=== PATIENT | male | born 1970 | race Caucasian/White ===

== ENCOUNTER 2019-05-17 03:14 | Inpatient (IN) | payer OTHER ==
[~2019-05-17] VITALS: Ht 175.3 cm; Wt 95.3 kg
[2019-05-17 03:14] VITALS: BP 102/74
[2019-05-17] MEDS ORDERED: OMEPRAZOLE 20 M20 M1 PO (03:18)
[2019-05-17 04:05] LABS: BASOPHILS 0.6 % (0.0-2.0); EOSINOPHILS 1.8 % (0.0-3.0); HEMATOCRIT 36.7 % (42.0-52.0); HEMOGLOBIN 12.6 gm/dL (14.0-18.0); LYMPHOCYTES 21.8 % (24.0-44.0); MCH 31.1 pg (26.0-34.0); MCHC 34.3 g/dL (28.0-37.0); MCV 90.6 fL (80.0-100.0); MONOCYTES 6.2 % (1.0-8.0); PLATELET COUNT 302 thou/uL (150-400); POLYS 69.6 % (36.0-66.0); RBC 4.05 mil/uL (4.50-6.00); WBC 8.6 thou/uL (4.0-11.0)
[2019-05-17 04:09] LABS: ANION GAP 7 mmol/L (7-16); BUN 33 mg/dL (7-18); CALCIUM 8.8 mg/dL (8.5-10.1); CHLORIDE 105 mmol/L (98-107); CO2 27 mmol/L (21-32); CREATININE 0.9 mg/dL (0.7-1.3); GLUCOSE 157 mg/dL (74-106); POTASSIUM 3.9 mmol/L (3.5-5.1); SODIUM 139 mmol/L (136-145)
[2019-05-17 04:20] LABS: ALBUMIN 3.1 g/dL (3.4-5.0); SGOT 12 U/L (15-37); SGPT 23 U/L (30-65); TOTAL BILIRUBIN 0.3 mg/dL (<0.1-1.0); TOTAL PROTEIN 6.4 g/dL (6.4-8.2); TROPONIN-I <0.06 ng/mL (<0.06)
[2019-05-17 07:38] VITALS: BP 91/64
[2019-05-17 14:18] VITALS: BP 123/67
[2019-05-17 20:03] VITALS: BP 121/74
[2019-05-18 05:22] VITALS: BP 105/68
[2019-05-18 06:05] LABS: HEMATOCRIT 28.9 % (42.0-52.0); MCH 30.9 pg (26.0-34.0); MCHC 33.8 g/dL (28.0-37.0); MCV 91.4 fL (80.0-100.0); RBC 3.16 mil/uL (4.50-6.00); RDW 13.1 % (10.5-14.5); WBC 6.5 thou/uL (4.0-11.0)
[2019-05-18 06:19] LABS: HEMOGLOBIN 9.8 gm/dL (14.0-18.0)
[2019-05-18 07:29] VITALS: BP 123/63
--- NOTE | 2019-05-18 07:50 | EKG ---
[address] [place] [address] ELECTROCARDIOGRAM REPORT Name: AL VERMA Room #: 204-P ADM IN M.R.#: [id number] Admission: 05/17/19 Attend Phys: Dagmar Fernandes Discharge: Date of : 68 Report #: [id number] THIS REPORT FOR: //name// [facility] ED Test Date: 2019-05-17 Test Time: 03:14:51 Pat Name: AL VERMA Department: Room: 204 Gender: M Business Intelligence Architect: : 1970 Requested By: John Tillman Order Number: [id number] MD: Casey Garay Measurements Intervals [place] Rate: 85 P: 51 [place]: 148 QRS: 55 QRSD: 72 T: 45 QT: 353 QTc: 420 Interpretive Statements Sinus rhythm Normal tracing No previous ECG available for comparison Electronically Signed On 05-18-2019 7:50:44 CDT by Casey Garay [email or web address] <ELECTRONICALLY SIGNED> By: Casey Garay MD, [facility] 05/18/19 0750 0314 0314 Casey Garay MD, FACC /EPI
[2019-05-18] MEDS ORDERED: CARAFATE 1 GM TA1 G1 PO (09:41)
[2019-05-18] MEDS ORDERED: PROTONIX40 M2 PO (09:41)
[2019-05-18 11:29] VITALS: BP 116/71
--- NOTE | 2019-05-18 12:41 | P ---
[facility] [place] [address] [place] [address] PROCEDURE REPORT Name: AL VERMA Room #: 204-P [facility] IN M.R.#: [id number] Admission: 05/17/19 Attend Phys: Dagmar Fernandes Discharge: Date of : 68 Report #: [id number] THIS REPORT FOR: //name// CC: Dagmar Zaldivar DATE OF SERVICE: 05/17/2019 PROCEDURE PERFORMED: Upper endoscopy with biopsies. HISTORY OF PRESENT ILLNESS: The patient is a 48-year-old male, who had 2 recent syncopal type episodes as well as melanotic stools. He was admitted through the Emergency Room today. His BUN is elevated at 33. His hemoglobin was 12.6 on admission. No previous history of GI bleed. The patient denies any abdominal pain. He does report some mild reflux and heartburn at times. DESCRIPTION OF PROCEDURE: The risks and benefits of the procedure were explained to the patient, those risks including, but not limited to, bleeding, perforation, and the risk of sedation. He understood these risks and gave the informed consent. Sedation was given using propofol per anesthesia. Next, using a standard Olympus upper endoscope, the scope was placed in the patient's mouth and advanced under direct vision through the esophagus, stomach, and into the second portion of the duodenum. The larynx was normal in appearance. The upper and mid esophagus was normal. In the distal esophagus, there was grade B erosive esophagitis. No evidence of bleeding. Overall, the gastric mucosa was normal. The pylorus was normal and patent. In the duodenal bulb and first portion, several ulcerations were noted. The largest was approximately 1.5 cm. There was no bleeding. No obvious visible vessel, although there was a small dark spot. I suspect the bleeding was recently, which is in the process of healing. The other ulcerations were clean and white based. Again, no evidence of blood. The scope was then brought back up into the patient's stomach and biopsies were obtained to rule out the possibility of H. pylori. The scope was then withdrawn and the procedure terminated. The patient tolerated the procedure well. IMPRESSION: 1. Duodenal ulcers, likely source of recent melanotic stools. No active bleeding at this time. 2. Grade B erosive esophagitis. 3. Otherwise, normal upper endoscopy. RECOMMENDATIONS: 1. Continue Protonix drip overnight, then we will switch to b.i.d. PPI therapy and Carafate for the next 2 weeks, and after that, [facility] daily PPI therapy. 2. Await biopsy results. [address] [address] PROCEDURE REPORT Name: AL VERMA Room #: 204-P [facility] IN M.R.#: [id number] Admission: 05/17/19 Attend Phys: Dagmar Fernandes Discharge: Date of : 68 Report #: [id number] 3. Continue to monitor hemoglobin. Thank you for allowing me to participate in his care. <ELECTRONICALLY SIGNED> By: Anthony Ibarra MD 05/18/19 1241 1600 0106 Anthony Ibarra MD /nt
[2019-05-18 13:08] LABS: HEMATOCRIT 30.6 % (42.0-52.0); HEMOGLOBIN 10.5 gm/dL (14.0-18.0)
--- NOTE | 2019-05-18 14:58 | 2DMMODE ---
[facility] [address] [place] [address] 2 D/M-MODE ECHOCARDIOGRAM Name: AL VERMA Room #: 204-P [facility] IN M.R.#: [id number] Admission: 05/17/19 Attend Phys: Dagmar Corea Discharge: Date of : 68 Report #: [id number] THIS REPORT FOR: //name// APPROVED REPORT Study performed: 05/18/2019 13:31:11 EXAM: Comprehensive 2D, Doppler, and color-flow Echocardiogram Patient Location: In-Patient Room #: 204 Status: routine BSA: 2.11 HR: 86 bpm BP: 116/71 mmHg Rhythm: NSR Other Information Study Quality: Good Indications Syncope Echo Enhancing Agent Indication: Rule out Shunt Agent(s) / Amount(s) Used: Agitated Saline 7 cc Comments: No shunting noted by contrast bubble injection. 2D Dimensions RVDd: 27.92 mm IVSd: 13.08 (7-11mm) LVOT Diam: 19.72 (18-24mm) LVDd: 46.50 mm PWd: 9.42 (7-11mm) Ascending Ao: 37.37 (22-36mm) LVDs: 29.86 (25-40mm) Aortic Root: 36.79 mm IVC: 16.00 mm Volumes Left Atrial Volume (Systole) Single Plane 4CH: 49.02 mL Single Plane 2CH: 47.11 mL LA ESV Index: 26.00 mL/m2 Aortic Valve AoV Peak Miguel.: 1.64 m/s AO Peak Gr.: 10.77 mmHg LVOT Max P.99 mmHg LVOT Max V: 1.41 m/s MARINA Vmax: 2.[address] [facility] Fwd: [place] [address] 2 D/M-MODE ECHOCARDIOGRAM Name: AL VERMA Room #: 204-P [facility] IN [facility].#: [id number] Admission: 05/17/19 Attend Phys: Dagmar Arriaga Mar Discharge: Date of : 68 Report #: [id number] Mitral Valve E/A Ratio: 0.0 MV E Max Miguel.: 0.94 m/s MV A Miguel.: 0.00 m/s IVRT: 78.43 ms Pulmonary Valve PV Peak Miguel.: 1.24 m/s PV Peak Gr.: 6.20 mmHg Tricuspid Valve TR Peak Miguel.: 2.59 m/s RAP Estimate: 5.00 mmHg TR Peak Gr.: 26.86 mmHg PA Pressure: 32.00 mmHg Left Ventricle The left ventricle is normal size. Borderline concentric left ventricular hypertrophy. The left ventricular systolic function is normal. The left ventricular ejection fraction is within the normal range. LVEF is 55-60%. Mild diastolic dysfunction is present (impaired relaxation pattern). Right Ventricle The right ventricle is normal size. The right ventricular systolic function is normal. Atria The left atrium size is normal. Injection of bubbles documented no interatrial shunt. The right atrium size is normal. Aortic Valve The aortic valve is normal in structure. No aortic regurgitation is present. There is no aortic valvular stenosis. Mitral Valve The mitral valve is normal in structure. Trace mitral regurgitation. No evidence of mitral valve stenosis. Tricuspid Valve The tricuspid valve is normal in structure. Trace to mild tricuspid regurgitation. Estimated PAP is 32mmHg. Pulmonic Valve Pulmonic valve is not well visualized. [facility] [address] [place] [address] 2 D/M-MODE ECHOCARDIOGRAM Name: AL VERMA Room #: 204-P [facility] IN M.R.#: [id number] Admission: 05/17/19 Attend Phys: Dagmar Corea Discharge: Date of : 68 Report #: [id number] The aortic root is normal in size. IVC is normal in size and collapses >50% with inspiration. Pericardium There is no pericardial effusion. <Conclusion> The left ventricle is normal size. The left ventricular systolic function is normal. Mild diastolic dysfunction is present (impaired relaxation pattern). The right ventricle is normal size. The left atrium size is normal. Injection of bubbles documented no interatrial shunt. The right atrium size is normal. The aortic valve is normal in structure. Trace mitral regurgitation. Trace to mild tricuspid regurgitation. Estimated PAP is 32mmHg. <ELECTRONICALLY SIGNED> By: Brenden Burger MD 05/18/191456 56 56 Brenden Burger MD /INF
[2019-05-18 16:24] VITALS: BP 113/77
[2019-05-19 05:16] VITALS: BP 100/66
[2019-05-19 05:20] LABS: HEMATOCRIT 26.3 % (42.0-52.0); MCH 31.5 pg (26.0-34.0); MCHC 34.4 g/dL (28.0-37.0); MCV 91.7 fL (80.0-100.0); RBC 2.87 mil/uL (4.50-6.00); RDW 13.1 % (10.5-14.5)
[2019-05-19 07:42] VITALS: BP 127/68
[2019-05-19 12:42] VITALS: BP 127/68
--- NOTE | 2019-05-19 15:07 | PATH ---
[facility] [address] [place] [address] PATHOLOGY RPT PROCEDURE Name: AL SHAFFER Room #: 204-P DIS IN M.R.#: [id number] Admission: 05/17/19 Date of : 68 Discharge: 05/19/19 Report #: [id number] Path Case #: [id number] [facility] Accession Number: [id number] . 01 Material submitted: . stomach - GASTRIC BX . 01 Clinical history: . Preop DX: melena Postop DX: duodenal ulcer, esophagitis R/O H. pylori . 02 Diagnosis: Gastric mucosa, gastric R/O H. pylori, endoscopic biopsy: - Helicobacter pylori-induced moderate active gastritis. - Negative for intestinal metaplasia or atrophy. - Numerous Helicobacter pylori identified on the properly controlled immunohistochemical stain performed. (IUV:toby; 05/19/2019) QMS 05/19/2019 1333 Local . 02 Electronically signed: . Latisha Malave MD, Pathologist NPI- [id number] . 01 Gross description: . Received in formalin labeled "Al Shaffer, gastric bx R/O H. pylori," are four segments of bailey soft tissue measuring 0.7 x 0.5 x 0.2 cm in aggregate dimensions and ranging from 0.3 to 0.5 cm in maximum dimension. The specimen is submitted entirely in cassette A1. (DAC; 05/18/2019) XDC/XDC 05/18/2019 0919 Local . 02 Pathologist provided ICD-10: K29.60, B96.81 . 02 CPT . 097672, I52782 Specimen Comment: A courtesy copy of this report has been sent to Specimen Comment: [phone], , . Specimen Comment: Report sent to ,DR SNEED / DR VIZCARRA Performed at: [address] [id number] MD Juan M Herrera MD Phone: [phone] Performed at: 02 [place] [address] PATHOLOGY RPT PROCEDURE Name: AL SHAFFER Room #: 204-P DIS IN M.R.#: [id number] Admission: 05/17/19 Date of : 68 Discharge: 05/19/19 Report #: [id number] Path Case #: [id number] [address] [facility], [place] [id number] MD Latisha Malave MD Phone: [phone]
== END 2019-05-19 13:30 | disposition home or self-care (01) | DRG 382 ==
LOC: ER 03:14 → 2N 05:37 → EROBS 05:37 → 2N 18:03 → ENTRNSPT 05-19 13:06 → EDTRNSPTSTS 05-19 13:07 → 2N 05-19 13:30
PROVIDERS: Emergency Medicine; Hospitalist; Nurse Practitioner; ADMIT Hospitalist
PROC: 0DB68ZX Excision of Stomach, Via Natural or Artificial Opening Endoscopic, Diagnostic (ICD-10-PCS; principal; 2019-05-17)
DX: K22.11 Ulcer of esophagus with bleeding (principal); K26.4 Chronic or unspecified duodenal ulcer with hemorrhage; K21.9 Gastro-esophageal reflux disease without esophagitis; R00.0 Tachycardia, unspecified; I10 Essential (primary) hypertension; D64.9 Anemia, unspecified; R73.9 Hyperglycemia, unspecified; Z23 Encounter for immunization; Z85.3 Personal history of malignant neoplasm of breast; Z98.52 Vasectomy status; Z79.899 Other long term (current) drug therapy
CPT/HCPCS: 10081; 62110; 62900; 70005

== ENCOUNTER 2020-04-07 10:11 | Emergency (ER) | payer BC ==
[~2020-04-07] VITALS: Ht 175.3 cm; Wt 95.3 kg
[~2020-04-07 10:11] MED LIST: CARAFATE 1 GM TA1 G1 PO; OMEPRAZOLE 20 M20 M1 PO; PROTONIX40 M2 PO
[2020-04-07 10:47] LABS: ABSOLUTE NEUTROPHILS 3.4 thou/uL (1.4-8.2); BASOPHILS 0.5 % (0.0-2.0); EOSINOPHILS 0.2 % (0.0-3.0); HEMATOCRIT 43.9 % (42.0-52.0); HEMOGLOBIN 15.1 gm/dL (14.0-18.0); MCH 28.3 pg (26.0-34.0); MCHC 34.4 g/dL (28.0-37.0); MCV 82.4 fL (80.0-100.0); MONOCYTES 5.5 % (1.0-8.0); PLATELET COUNT 216 thou/uL (150-400); POLYS 82.8 % (36.0-66.0); RBC 5.32 mil/uL (4.50-6.00); RDW 15.4 % (10.5-14.5); WBC 4.1 thou/uL (4.0-11.0)
[2020-04-07 11:18] LABS: ANION GAP 11 mmol/L (7-16); BUN 11 mg/dL (7-18); CALCIUM 8.5 mg/dL (8.5-10.1); CHLORIDE 101 mmol/L (98-107); CO2 25 mmol/L (21-32); CREATININE 0.8 mg/dL (0.7-1.3); GLUCOSE 106 mg/dL (74-106); POTASSIUM 3.9 mmol/L (3.5-5.1); SODIUM 137 mmol/L (136-145)
[2020-04-07 11:22] LABS: ALBUMIN 3.2 g/dL (3.4-5.0); MAGNESIUM 2.2 mg/dL (1.8-2.4); SGOT 22 U/L (15-37); SGPT 30 U/L (30-65); TOTAL BILIRUBIN 0.7 mg/dL (0.2-1.0); TOTAL PROTEIN 7.5 g/dL (6.4-8.2); TROPONIN-I <0.06 ng/mL (<0.06)
[2020-04-07] MEDS ORDERED: DOXYCYCLINE 10100 MG PO ×2 (12:20)
[2020-04-07] MEDS ORDERED: TESSALON PERLE100 MG PO ×2 (12:20)
--- NOTE | 2020-04-07 13:11 | EKG ---
[facility] [place] [address] ELECTROCARDIOGRAM REPORT Name: AL VERMA Room #: [facility].#: [id number] Admission: 04/07/20 Attend Phys: Discharge: Date of : 68 Report #: [id number] THIS REPORT FOR: cc: LAKEISHA Sargent family physician/PCP LAKEISHA Sargent family physician/PCP Deonte Garner MD [facility] ~ THIS REPORT FOR: //name// [facility] ED Test Date: 2020-04-07 Test Time: 11:43:10 Pat Name: AL VERMA Department: Room: Gender: Shipping And Receiving Assistant: river : 1970 Requested By: Boris Leung Order Number: [id number] MD: Deonte Garner Measurements Intervals [place] Rate: 83 P: 17 [place]: 165 QRS: 13 QRSD: 71 T: 8 QT: 340 QTc: 400 Interpretive Statements Sinus rhythm Probable left atrial enlargement Compared to ECG 05/17/2019 03:14:51 No significant changes Electronically Signed On 04-07-2020 13:11:00 CDT by Deonte Garner [email or web address] <ELECTRONICALLY SIGNED> By: Deonte Garner MD, FACC 04/07/20 1311 1143 1143 Deonte Garner MD, [facility] /EPI
[2020-04-07 13:45] VITALS: BP 109/74
== END 2020-04-07 16:27 | disposition home or self-care (01) ==
LOC: ER 10:11
PROVIDERS: Emergency Medicine
DX: U07.1 COVID-19 (principal); I48.0 Paroxysmal atrial fibrillation; F03.90 Unspecified dementia, unspecified severity, without behavioral disturbance, psychotic disturbance, mood disturbance, and anxiety; Z79.899 Other long term (current) drug therapy

== ENCOUNTER 2020-04-08 12:10 | Inpatient (IN) | payer BC ==
[~2020-04-08] VITALS: Ht 175.3 cm; Wt 95.3 kg
[~2020-04-08 12:10] MED LIST changes: +DOXYCYCLINE 10100 MG PO; +TESSALON PERLE100 MG PO
[2020-04-08 12:55] LABS: URINE BLOOD TRACE (Negative); URINE CLARITY CLEAR; URINE COLOR YELLOW; URINE GLUCOSE-RANDOM* NEGATIVE (Negative); URINE KETONES 1+ (Negative); URINE LEUKOCYTES-REFLEX NEGATIVE (Negative); URINE NITRITE-REFLEX NEGATIVE (Negative); URINE PROTEIN (DIPSTICK) TRACE (Negative); URINE SPECIFIC GRAVITY 1.025 (1.005-1.035); URINE UROBILINOGEN 0.2 E.U./dl (0.2-1.0)
[2020-04-08 12:57] LABS: ICTOTEST (BILI CONFIRMATORY) Negative (Negative); URINE BILIRUBIN NEGATIVE (Negative)
[2020-04-08 13:02] LABS: ABSOLUTE NEUTROPHILS 2.9 thou/uL (1.4-8.2); BASOPHILS 0.6 % (0.0-2.0); EOSINOPHILS 1.1 % (0.0-3.0); HEMATOCRIT 42.7 % (42.0-52.0); HEMOGLOBIN 14.7 gm/dL (14.0-18.0); LYMPHOCYTES 17.2 % (24.0-44.0); MCH 28.2 pg (26.0-34.0); MCHC 34.5 g/dL (28.0-37.0); MCV 81.7 fL (80.0-100.0); PLATELET COUNT 223 thou/uL (150-400); POLYS 73.1 % (36.0-66.0); RBC 5.22 mil/uL (4.50-6.00); RDW 14.9 % (10.5-14.5)
[2020-04-08 13:09] LABS: CALCIUM 8.6 mg/dL (8.5-10.1); CREATININE 0.8 mg/dL (0.7-1.3); POTASSIUM 4.2 mmol/L (3.5-5.1)
[2020-04-08 13:26] LABS: DIRECT BILIRUBIN 0.1 mg/dL (<0.1-0.2); TOTAL BILIRUBIN 0.6 mg/dL (0.2-1.0); TOTAL PROTEIN 7.4 g/dL (6.4-8.2)
[2020-04-08 14:52] VITALS: BP 113/64
[2020-04-08 14:58] VITALS: BP 119/80
--- NOTE | 2020-04-08 19:00 | NUR ---
1530 PT ADMITTED TO 3W, ROOM 350. PT ALERT AND ORINTED X4, DNIES CHEST PAIN, NAUSEA AND VOMITTING. PT IS ON ROOM AIR, NO SIGNS OF DISTRESS NOTED. PROGRAM ADVISOR PLACED ON PT, SINUS RHYTHM. PT ORIENTED TO ROOM. ADMISSION AND VITAL SIGNS COMPLETED. PT IS UP AD TITO. FALL CONSENT SIGNED. CALL LIGHT AND TABLE WITHIN REACH. BED TA LOWEST LEVEL DENIES ANY NEEDS BUZZ. WILL CONTINUE TO MONITOR.
[2020-04-08 19:22] VITALS: BP 119/81
[2020-04-09 04:48] VITALS: BP 109/73
--- NOTE | 2020-04-09 05:47 | NUR ---
Pt. slept fair during the night. Tolerating room air well with O2 sat in he upper 90's. PRN cough med given with some relief. Afebrile.Cont. on enhanced precaution.
[2020-04-09 07:04] VITALS: BP 116/79
[2020-04-09 11:27] VITALS: BP 117/75
--- NOTE | 2020-04-09 12:44 | NUR ---
PT CARE ASSUMED AT 0700, PT ALERT AND ORIENTED X4, PT DENIES ANY CHEST PAIN, NBAUSEA. PT IS ON ROOM AIR, NO SIGNS OF DISTRESS NOTED. PT IS UP AD TITO. ASSESSMENT AND VITAL SIGNS STABLE. PT DENIES ANY NEDS AT THE MOMENT. CALL LIGHT AND TABLE WITHIN REACH. WILL CONTINUE TO MONITOR.
[2020-04-09 15:58] VITALS: BP 127/87
[2020-04-09] MEDS ORDERED: VENTOLIN HFA INH8 GM INH ×2 (16:29)
[2020-04-09] MEDS ORDERED: PREDNISONE 20 M20 MG PO ×2 (16:29)
[2020-04-09 16:50] VITALS: BP 127/87
--- NOTE | 2020-04-09 18:11 | NUR ---
DISCHARGE ORDERS IN, DISCHARGE PAPAERWORK AND AMD NEW MED INFOR GIVEN TO PT. IV TAKEN OUT. TELE D/C AND REMOVED=. 1805 PT TAKEN DOWN VIA WHEELCHAIR, FAMILY HERE TO PICK PT UP
== END 2020-04-09 18:24 | disposition home or self-care (01) | DRG 177 ==
LOC: ER 12:10 → EROBS 14:42 → 3W 15:00
PROVIDERS: Emergency Medicine; ADMIT Hospitalist; ATTEND Hospitalist
DX: U07.1 COVID-19 (principal); J12.89 Other viral pneumonia; K21.9 Gastro-esophageal reflux disease without esophagitis; Z82.49 Family history of ischemic heart disease and other diseases of the circulatory system; Z80.3 Family history of malignant neoplasm of breast; Z98.52 Vasectomy status; Z79.899 Other long term (current) drug therapy
CPT/HCPCS: 10879